=== PATIENT | female | born 1990 | race Caucasian/White ===

== ENCOUNTER 2016-06-05 23:16 | Emergency (ER) | payer SELFPAY ==
[~2016-06-05] VITALS: Ht 162.6 cm; Wt 68.0 kg
[2016-06-05 23:33] VITALS: BP 141/99
[2016-06-06] MEDS ORDERED: DEXAMETHASONE SOD PHOSPHATE 10 MG/ML VIAL ONE (00:01)
[2016-06-06] MEDS ORDERED: FAMOTIDINE (20 MG) 20 MG TABLET ONE (00:01)
[2016-06-06] MEDS ORDERED: ALBUTEROL FS 2.5 MG/3 ML VIAL.NEB CONTNEB ONE (00:30)
[2016-06-06] MEDS ORDERED: FAMOTIDINE (20 MG) 20 MG TABLET PO ONE (00:30)
[2016-06-06] MEDS ORDERED: DEXAMETHASONE SOD PHOSPHATE 10 MG/ML VIAL IV ONE (00:30)
== END 2016-06-06 02:53 | disposition home or self-care (01) ==
LOC: ER 23:22
DX: F19.10 Other psychoactive substance abuse, uncomplicated (principal); L50.9 Urticaria, unspecified; F12.10 Cannabis abuse, uncomplicated; F31.9 Bipolar disorder, unspecified
CPT/HCPCS: 96374; 99284; A4606; J1100; Z7610